=== PATIENT | male | born 1950 | race Two or more races ===

== ENCOUNTER 2018-09-01 11:58 | Emergency (ER) | payer OTHER, MEDICAID ==
[~2018-09-01] VITALS: Ht 162.6 cm; Wt 66.0 kg
[2018-09-01] MEDS ORDERED: MORPHINE SULFATE 4 MG/ML CPJ (NOT FOR IM USE) IV STA (14:34)
[2018-09-01] MEDS ORDERED: ONDANSETRON HCL 4MG/2ML INJ IV STA (14:34)
[2018-09-01 16:37] LABS: BASOPHILS % 0.5 % (0.0-2.0); EOSINOPHILS % 0.5 % (0.0-5.0); HEMATOCRIT. 47.1 % (42.0-52.0); HEMOGLOBIN. 16.2 g/dL (14.0-18.0); LYMPHOCYTES % 16.3 % (20.0-50.0); MEAN CORPUSCULAR HEMOGLOBIN 30.4 pg (28.0-32.0); MEAN CORPUSCULAR VOLUME 88.4 fL (80.0-94.0); MEAN PLATELET VOLUME 7.7 fl (7.4-10.4); MONOCYTES % 4.4 % (2.0-8.0); NEUTROPHILS % 78.3 % (40.0-76.0); PLATELET 200 x1000/uL (130-400); RED BLOOD CELL COUNT 5.32 mill/uL (4.7-6.1); RED CELL DISTRIBUTION WIDTH 13.7 % (11.6-14.6)
[2018-09-01 16:46] LABS: CHLORIDE 107 mEq/L (98-107); PARTIAL THROMBOPLASTIN TIME 27.2 sec (23.4-31.0); PROTHROMBIN TIME 10.5 sec (9.1-11.1)
[2018-09-01 16:50] LABS: ETHANOL BLOOD < 10 mg/dL
[2018-09-01 20:00] VITALS: BP 150/70
== END 2018-09-01 20:50 | disposition left against medical advice (07) ==
LOC: ER 11:58 → EDBEDREQTM 19:43 → EDBEDREQ 19:43 → ER 20:50 → CANBEDREQ 21:33
DX: G93.49 Other encephalopathy (principal); E11.65 Type 2 diabetes mellitus with hyperglycemia; I12.9 Hypertensive chronic kidney disease with stage 1 through stage 4 chronic kidney disease, or unspecified chronic kidney disease; E11.22 Type 2 diabetes mellitus with diabetic chronic kidney disease; N18.2 Chronic kidney disease, stage 2 (mild); Z98.890 Other specified postprocedural states; Z79.899 Other long term (current) drug therapy
CPT/HCPCS: 36415; 70450; 71045; 80053; 82140; 83690; 83880; 84484; 85025; 85610; 85730; 86850; 86900; 86901; 87186; 93005; 96374; 96375; 99284; J2270; J2405